=== PATIENT | female | born 1985 | race Two or more races ===

== ENCOUNTER 2017-01-09 05:38 | Emergency (ER) | payer OTHER ==
[~2017-01-09] VITALS: Ht 170.2 cm; Wt 56.7 kg
== END 2017-01-09 15:29 | disposition home or self-care (01) ==
LOC: ER 05:38
DX: O00.201 Right ovarian pregnancy without intrauterine pregnancy (principal); R55 Syncope and collapse; Z34.81 Encounter for supervision of other normal pregnancy, first trimester

== ENCOUNTER 2020-06-16 08:00 | Outpatient (CLI) | payer OTHER | END 2020-06-16 08:10 | disposition home or self-care (01) | LOC: RX STUDY 08:00 | PROVIDERS: ATTEND Obstetrics & Gynecology | DX: N70.01 Acute salpingitis (principal) ==